=== PATIENT | male | born 1990 | race Caucasian/White ===

== ENCOUNTER 2018-05-12 15:32 | Emergency (ER) | payer SELFPAY ==
[2018-05-12] MEDS ORDERED: DERMABOND SKIN ADHESIVE TOP ONE (15:54)
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
--- NOTE | 2018-05-12 16:33 | RAD REPORT ---
EXAM DESCRIPTION: CT - CTFB CLINICAL HISTORY: PAIN COMPARISON: No comparisons TECHNIQUE: Axial 2 mm thick images of the face were obtained with sagittal and coronal reconstructio n images. All CT scans are performed using dose optimization technique as appropriate and may include automated exposure control or mA/KV adjustment according to patient size. FINDINGS: Minimally displaced nasal bone fracture is noted.The mandible is intact. The globes and orbital contents are grossly unremarkable.Mild mucoperiosteal thickening is seen invol ving both maxillary sinuses. The paranasal sinuses and mastoids are otherwise clear. IMPRESSION: Minimally displaced nasal bone fractures.
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
== END 2018-05-12 17:26 | disposition home or self-care (01) ==
LOC: ER 15:32
DX: S02.2XXA Fracture of nasal bones, initial encounter for closed fracture (principal); S20.212A Contusion of left front wall of thorax, initial encounter; H11.32 Conjunctival hemorrhage, left eye; Y04.2XXA Assault by strike against or bumped into by another person, initial encounter; Y93.9 Activity, unspecified; Y92.9 Unspecified place or not applicable; Z88.0 Allergy status to penicillin
CPT/HCPCS: 70450; 70486; 71045; 72125; 76377; 99284